=== PATIENT | female | born 1990 | race Caucasian/White ===

== ENCOUNTER → 2023-05-10 | Outpatient (CLI) | payer OTHER ==
[2023-05-11 09:12] LABS: Candida species (DNA Probe) Negative (NEGATIVE); G. vaginalis (DNA Probe) Positive (NEGATIVE); T. vaginalis (DNA Probe) Negative (NEGATIVE)
[2023-05-12 15:11] LABS: HSV-1 DNA Negative (Negative); HSV-2 DNA Negative (Negative)
[2023-05-12 15:11] LABS: HBSAG SCREEN Negative (Negative); HCV ANTIBODY Reactive (Non Reactive); HIV AB/P24 AG SCREEN Non Reactive (Non Reactive)
== END | disposition home or self-care (01) ==
LOC: LAB SHORT 16:30 → LAB 16:30
PROVIDERS: Registered Nurse Community Health
DX: Z11.3 Encounter for screening for infections with a predominantly sexual mode of transmission (principal); N89.8 Other specified noninflammatory disorders of vagina; R07.0 Pain in throat
CPT/HCPCS: 86592; 86803; 87081; 87340; 87389; 87480; 87510; 87529; 87660

== ENCOUNTER → 2024-07-28 | Outpatient (CLI) | payer OTHER ==
[2024-07-28 18:33] LABS: BASOPHILS ABSOLUTE AUTO 0.02 K/mm3 (0.00-0.23); BASOPHILS PERCENT AUTO 0 % (0-2); EOSINOPHILS ABSOLUTE AUTO 0.17 K/mm3 (0.00-0.68); EOSINOPHILS PERCENT AUTO 3 % (0-6); Hematocrit 39.7 % (33.0-51.0); Hemoglobin 12.8 g/dL (11.5-16.0); IMMATURE GRAN ABSOLUTE AUTO 0.01 K/mm3 (0.00-0.10); IMMATURE GRAN PERCENT AUTO 0 % (0-1); LYMPHOCYTES ABSOLUTE AUTO 1.55 K/mm3 (0.84-5.20); LYMPHOCYTES PERCENT AUTO 31 % (21-46); MONOCYTES ABSOLUTE AUTO 0.39 K/mm3 (0.16-1.47); MONOCYTES PERCENT AUTO 8 % (4-13); Mean Corpuscular HGB 33.5 pg (26.0-34.0); Mean Corpuscular HGB Conc 32.2 g/dL (31.5-36.5); Mean Corpuscular Volume 104 fL (80-100); NEUTROPHILS ABSOLUTE AUTO 2.86 K/mm3 (1.96-9.15); NEUTROPHILS PERCENT AUTO 57 % (41-73); Platelet Count 354 K/mm3 (150-400); RDW Coefficient Variation 12.3 % (11.7-14.2); Red Blood Cell Count 3.82 M/mm3 (3.80-5.20)
[2024-07-28 19:29] LABS: C-REACTIVE PROTEIN, EXT RANGE <0.290 mg/dL (0.000-0.300)
[2024-07-28 19:30] LABS: Very Low Density Lipoprot Chol 9 mg/dL (6-28)
[2024-07-28 19:41] LABS: Alanine Aminotransfer (ALT/SGP 17 U/L (12-78); Albumin/Globulin Ratio 1.1 (0.8-1.8); Alk Phos 83 U/L (50-136); Anion Gap 5 mmol/L (3-11); Aspartate Aminotrans (AST/SGOT 15 U/L (12-37); Bilirubin, Total 0.6 mg/dL (0.1-1.0); Blood Urea Nitrogen 9 mg/dL (8-24); CHOL/HDL RATIO 1.9; CO2, Blood 28 mmol/L (21-32); Calcium, Blood 8.9 mg/dL (8.5-10.1); Chloride, Blood 109 mmol/L (98-108); Cholesterol 183 mg/dL (50-200); Creatinine, Blood 0.69 mg/dL (0.40-1.00); Free Thyroxine 0.78 ng/dL (0.70-1.60); Globulin, Blood 3.8 g/dL (2.2-4.0); Glomerular Filtration Rate 117 (60-); Glucose, Blood 85 mg/dL (70-99); HDL Cholesterol 94 mg/dL (>39); LDL/HDL RATIO 0.8; Low Density Lipoprotein Chol 80 mg/dL (0-110); Sodium, Blood 138 mmol/L (136-145); Total Protein, Blood 7.8 g/dL (6.4-8.2); Triglycerides 46 mg/dL (30-140); Triiodothyronine, Free 3.01 pg/mL (2.18-3.98)
[2024-07-31 02:33] LABS: THYROID PEROXIDASE (TPO) AB 0.3 IU/mL (0.0-9.0)
[2024-07-31 02:52] LABS: THYROGLOBULIN ANTIBODY <0.9 IU/mL (0.0-4.0)
[2024-07-31 12:23] LABS: CYCLIC CITRULLINATED PEP,IGG/A 4 Units (0-19)
[2024-07-31 20:52] LABS: ANTI-NUCLEAR AB ANA,IGG ELISA None Detected (None Detected)
[2024-08-01 23:07] LABS: HCV QNT BY NAAT (IU/ML) Not Detected; HCV QNT BY NAAT (LOG IU/ML) Not Detected; HCV QNT BY NAAT INTERP Not Detected (Not Detected)
== END ==
LOC: LAB SHORT 17:17 → LAB 17:17
PROVIDERS: Nurse Practitioner Family
DX: Z00.01 Encounter for general adult medical examination with abnormal findings (principal); R21 Rash and other nonspecific skin eruption; R53.81 Other malaise; R53.83 Other fatigue; Z13.220 Encounter for screening for lipoid disorders; Z86.19 Personal history of other infectious and parasitic diseases
CPT/HCPCS: 80053; 80061; 84439; 84443; 84481; 85025; 85651; 86038; 86140; 86200; 86376; 86430; 86800; 87522

== ENCOUNTER → 2025-04-10 | Outpatient (CLI) | payer OTHER | LOC: LAB 07:59 → LAB SHORT 07:59 | DX: R93.89 Abnormal findings on diagnostic imaging of other specified body structures (principal) | CPT/HCPCS: 88305 ==